=== PATIENT | male | born 1930 | race Caucasian/White ===

== ENCOUNTER 2019-11-14 15:45 | Emergency (ER) | payer MEDICARE ==
[~2019-11-14] VITALS: Ht 170.2 cm; Wt 71.2 kg
--- NOTE | 2019-11-14 16:23 | NUR ---
pt left without being seen
== END 2019-11-14 16:25 | disposition left against medical advice (07) ==
LOC: ER 15:49
DX: M79.642 Pain in left hand (principal)
CPT/HCPCS: A4663